=== PATIENT | female | born 1935 | race Caucasian/White ===

== ENCOUNTER 2019-04-18 09:35 | Outpatient (CLI) | payer MEDICARE, BC ==
--- NOTE | 2019-04-18 10:49 | CT ---
CT abdomen and pelvis with IV contrast. Oral contrast was administered. INDICATIONS: Colon cancer COMPARISON: None FINDINGS: Lung bases are clear Liver, spleen, and pancreas appear unremarkable. Stomach and duodenum appear unremarkable. Adrenal glands appear normal. 1.4 cm cyst superior pole right kidney. 1.2 cm cyst inferior pole right kidney. Other smaller subcent imeter cyst right kidney. 1 cm cyst mid left kidney. 1 cm cyst superior left kidney. Other smaller subcentimeter cystic lesions left kidney. No hydronephrosis or solid mass. Urinary bladder contracted and not well evaluated. Mural thickening of the terminal ileum. Small bowel loops otherwise unremarkable. Appendix not identified. Mural thickening at the cecum may related to patient's known history of colon cancer. Aorta shows atherosclerotic calcification without aneurysm. No evidence of retroperitoneal or mesenteric adenopathy. Calcification within the uterine fundus consistent with fibroid. Uterus and adnexa otherwise unremark able. Subcutaneous tissues, abdominal wall, and muscular structures appear unremarkable. Degenerative changes at both hips. No focal lytic or blastic osseous lesion. IMPRESSION: 1. Mural thickening and luminal narrowing at the cecum may relate to known history of colon cancer. M ural thickening of the terminal ileum is also noted. 2. Renal cystic lesions as described
[2019-04-18] MEDS ORDERED: ISOVUE-370 76%-LOCM 1 ML ONE (20:37)
== END 2019-04-18 09:36 | disposition home or self-care (01) ==
LOC: BICCT 09:35
PROVIDERS: ATTEND Surgery
DX: C18.2 Malignant neoplasm of ascending colon (principal); N28.1 Cyst of kidney, acquired; K56.609 Unspecified intestinal obstruction, unspecified as to partial versus complete obstruction
CPT/HCPCS: 74177; 82565; Q9966

== ENCOUNTER 2019-04-23 10:50 | Outpatient (CLI) | payer MEDICARE, BC ==
[2019-04-23 12:50] LABS: #Eosinphils 0.1 thou/uL (0.0-0.7); #Lymphocytes 1.9 thou/uL (1.20-3.40); #Monocytes 0.7 thou/uL (0.11-0.59); #Neutrophils 3.2 thou/uL (1.40-6.50); %Basophils 0.6 % (0.0-1.0); %Eosinophils 2.3 % (0.0-10.0); %Lymphocytes 32.3 % (21.0-51.0); %Monocytes 11.1 % (0.0-10.0); %Neutrophils 53.8 % (42.0-75.0); Hemoglobin 14.7 g/dL (12.0-16.0); Mean Corpuscular HGB CONC 33.6 g/dL (32.0-36.0); Mean Corpuscular Hemoglobin 31.6 pg (27.0-31.0); Mean Corpuscular Volume 94.1 fL (78.0-98.0); Platelet Count 181 thou/uL (130-400); RBC Distribution Width 11.6 % (11.5-14.5); Red Blood Cell (RBC) Count 4.63 mill/uL (4.20-5.40); White Blood Cell (WBC) Count 5.9 thou/uL (4.8-10.8)
[2019-04-23 12:59] LABS: Hemoglobin A1c 5.5 % (4.0-6.0)
[2019-04-23 13:12] LABS: Anion Gap 12 mmol/L (10-20); BUN (Urea Nitrogen) 20 mg/dL (9.8-20.1); Calc. Creatinine Clearance 0 mL/min (70-130); Calcium 9.6 mg/dL (7.8-10.44); Carbon Dioxide 26 mmol/L (23-31); Chloride 105 mmol/L (98-107); Estimated GFR-MDRD 66; Glucose 78 mg/dL (83-110); Potassium 4.3 mmol/L (3.5-5.1); Sodium 139 mmol/L (136-145)
== END 2019-04-23 10:51 | disposition home or self-care (01) ==
LOC: LABBT 10:50
PROVIDERS: ATTEND Surgery
DX: Z01.818 Encounter for other preprocedural examination (principal); C18.9 Malignant neoplasm of colon, unspecified
CPT/HCPCS: 80048; 83036; 85025; 93005; 93010

== ENCOUNTER 2019-05-02 07:31 | Inpatient (IN) | payer MEDICARE, BC ==
[2019-05-02] MEDS ORDERED: Esmolol 100 MG/10 ML VIAL ONE (11:59)
[2019-05-02] MEDS ORDERED: Sodium Chloride 0.9% 100 ML ONE (11:59)
[2019-05-02] MEDS ORDERED: cefOXitin 2 GM VIAL ONE ×2 (11:59→15:44)
[2019-05-02] MEDS ORDERED: Fentanyl 100 MCG/2 ML VIAL ONE ×2 (13:17→13:19)
[2019-05-02] MEDS ORDERED: Midazolam HCl 2 mg/2 ml Vial ONE (13:19)
[2019-05-02] MEDS ORDERED: Dexamethasone 4 mg/ml Vial ONE (13:30)
[2019-05-02] MEDS ORDERED: Lidocaine 1% (PF) 30 ML VIAL ONE (13:30)
[2019-05-02] MEDS ORDERED: Indocyanine Green 25 MG/10 ML VIAL ONE (13:32)
[2019-05-02] MEDS ORDERED: Bupivacaine/Epinephrine 0.25% 30 ML VIAL ONE (13:32)
[2019-05-02] MEDS ORDERED: Albumin 5% 0 ML ONE (13:44)
[2019-05-02] MEDS ORDERED: Ondansetron HCl/PF 4 MG/2 ML Vial IVP PRN (15:27)
[2019-05-02] MEDS ORDERED: Promethazine HCl 25 MG/ML VIAL SLOW IVP PRN (15:27)
[2019-05-02] MEDS ORDERED: HYDROmorphone 2 MG/ML VIAL SLOW IVP PRN (15:27)
[2019-05-02] MEDS ORDERED: Meperidine HCl/PF 25 MG/ML VIAL SLOW IVP PRN (15:27)
[2019-05-02] MEDS ORDERED: Ketorolac Tromethamine 30 MG/ML VIAL IVP PRN (15:27)
[2019-05-02] MEDS ORDERED: Promethazine HCl 25 MG/ML VIAL IM PRN ×2 (15:27→16:44)
[2019-05-02] MEDS ORDERED: Fentanyl 100 MCG/2 ML VIAL SLOW IVP PRN ×2 (16:44)
[2019-05-02] MEDS ORDERED: hydrALAZINE 20 MG/ML VIAL SLOW IVP PRN (16:44)
[2019-05-02 19:57] VITALS: BMI 21.4
[2019-05-02] MEDS: Acetaminophen 1,000 MG in Premix Bag 1 BAG IVPB SCH (20:18)
[2019-05-02] MEDS: D5 1/2 NS w/20 mEq KCL 1,000 ML IV SCH (20:19)
[2019-05-02] MEDS: Famotidine/PF 20 mg/2ml Vial SLOW IVP SCH (20:20)
[2019-05-02] MEDS: Ondansetron PF 4 MG/2 ML Vial IVP PRN (20:20)
[2019-05-02] MEDS: Famotidine 20 MG TAB PO SCH (20:20)
[2019-05-02] MEDS: cefOXitin Sodium/Dextrose,Iso 1 GM in Premix Bag 50 BAG IVPB SCH (23:08)
--- NOTE | 2019-05-03 00:03 | OP ---
DATE OF PROCEDURE: 05/02/2019 PREOPERATIVE DIAGNOSIS: Ascending colon cancer. POSTOPERATIVE DIAGNOSIS: Ascending colon cancer. PROCEDURE PERFORMED: Da Maxime laparoscopic right colectomy with isoperistaltic anastomosis. ANESTHESIA: General. ESTIMATED BLOOD LOSS: 50 mL. COMPLICATIONS: None. FINDINGS: The small polypoid cancer is in the cecum when the specimen was opened on the back table. DESCRIPTION OF PROCEDURE: The patient had undergone mechanical and antibiotic bowel prep. She had TAP blocks in the preoperative holding area, taken to the operating room and laid supine on the operating table. After general anesthetic was obtained, a Andrade was placed. The abdomen was prepped and draped in a sterile fashion. Left subcostal 5 mm Optiview trocar was placed in usual fashion. High-flow pneumoperitoneum was obtained. The robot camera port was placed in the left umbilicus. Robot assist ports placed in the left lower quadrant. The subcostal 5 port was switched out to the robot stapler port. 11 mm assist port was placed in the left lateral abdomen. The patient had been placed in Trendelenburg position, rolled to her left. Robot was brought on the right and all ports were docked to the robot. She had some adhesions from prior appendectomy. These were taken down. The ileocolic vessels were skeletonized. The ileocolic artery was skeletonized in the medial aspect of the ascending colon mesentery. The ileocolic artery was taken low using the robot vessel sealer. Dissection was performed then through the mesentery. The right ureter was found and excluded from the dissection. The right colon was mobilized along the white line of Toldt posteriorly in the area that the duodenum was left down and out of the area of dissection and not injured. Dissection was performed around the corner. The hepatic flexure was mobilized and then the colon was mobilized in the proximal transverse colon. A robot stapler was fired across the proximal transverse colon, reloaded and fired across the terminal ileum. The specimen was then completely . The small intestine was able to brought up in an isoperistaltic fashion next to the proximal transverse colon under no tension. Holding stitch of Vicryl was placed on the distal and proximal ends of the small intestine to attach it to the side of the transverse colon. Colotomy and enterotomy were made and the [id number]-rj-[id number] anastomosis performed using a reload of the stapler. The common enterotomy was closed longitudinally using a running 2-0 Vicryl suture in 2 layers. All needles were removed from the abdomen. There was no ongoing bleeding. All ports were undocked from the robot. The robot trocar was removed and a GraNee needle 0 Vicryl tie was used to close the fascial defect. A small incision was made in the right lower quadrant and Darek small wound retractor was placed. The colon specimen was brought out through the incision. It was opened on the back table to reveal the mass to be in the specimen. This fascial defect was closed with the anterior-posterior fascia using PDS suture. The incision was irrigated copiously using sterile solution. All incisions were irrigated and closed using 4-0 Monocryl and Dermabond. The patient was sent to Recovery in stable condition. All instrument counts, needle counts and lap counts are correct. Job ID: [id number]
[2019-05-03] MEDS: Acetaminophen 1,000 MG in Premix Bag 1 BAG IVPB SCH ×2 (02:45→08:55)
[2019-05-03 05:45] LABS: Band 5 % (5-11); Hemoglobin 12.7 g/dL (12.0-16.0); Lymphocytes 9 % (21-51); MDiff Complete? YES; Mean Corpuscular HGB CONC 34.8 g/dL (32.0-36.0); Mean Corpuscular Hemoglobin 32.7 pg (27.0-31.0); Mean Platelet Volume 7.3 fL (7.4-10.4); Neutrophil 85 % (42-75); Platelet Count 154 thou/uL (130-400); RBC Distribution Width 11.4 % (11.5-14.5); Reactive Lymphocytes 1 % (0-10); White Blood Cell (WBC) Count 9.6 thou/uL (4.8-10.8)
[2019-05-03 05:54] LABS: Anion Gap 13 mmol/L (10-20); BUN (Urea Nitrogen) 13 mg/dL (9.8-20.1); Calc. Creatinine Clearance 43 mL/min (70-130); Calcium 8.8 mg/dL (7.8-10.44); Carbon Dioxide 21 mmol/L (23-31); Chloride 106 mmol/L (98-107); Estimated GFR-MDRD 60; Glucose 179 mg/dL (83-110); Potassium 4.5 mmol/L (3.5-5.1); Sodium 135 mmol/L (136-145)
[2019-05-03] MEDS: Ondansetron PF 4 MG/2 ML Vial IVP PRN ×2 (06:47→12:33)
[2019-05-03] MEDS: Famotidine 20 MG TAB PO SCH ×2 (08:54→20:12)
[2019-05-03] MEDS ORDERED: Prevnar 13-Val Conj/PF 0.5 ML SYRINGE IM ONE (09:00)
[2019-05-03] MEDS ORDERED: FLU VACC TS2019-20(65YR UP)/PF 180 MCG/0.5 ML SYRINGE IM ONE (09:00)
--- NOTE | 2019-05-03 09:54 | PDOC.GSPN ---
Surgery Progress Note: Subj - Subjective Narrative: complaining of nausea when up out of bed Surgery Progress Note: Obj - Vital signs Vital signs: Vital Signs - Most Recent Temp Pulse Resp BP Pulse Ox 97.5 F L 69 16 126/78 97 05/03/19 07:15 05/03/19 07:15 05/03/19 07:15 05/03/19 07:15 05/03/19 07:15 - Physical Exam General: no distress Abdomen: soft, appropriately tender Wound: healing well Surgery Progress Note: Results - Labs Result Diagrams: 05/03/19 04:48 05/03/19 04:48 Lab results: Laboratory Results - last 24 hr 05/03/19 05/03/19 04:48 04:48 WBC 9.6 RBC 3.90 L Hgb 12.7 Hct 36.6 MCV 94.0 MCH 32.7 H MCHC 34.8 RDW 11.4 L Plt Count 154 MPV 7.3 L Neutrophils % (Manual) 85 H Band Neuts % (Manual) 5 Lymphocytes % (Manual) 9 L Reactive Lymphs % 1 Sodium 135 L Potassium 4.5 Chloride 106 Carbon Dioxide 21 L Anion Gap 13 BUN 13 Creatinine 0.90 Estimated GFR (MDRD) 60 Glucose 179 H Calcium 8.8 Surgery Progress Note: A/P - Problem (1) Colon cancer Current Visit: Yes Code(s): C18.9 - MALIGNANT NEOPLASM OF COLON, UNSPECIFIED Status: Acute - Plan Plan: POD 1 right colectomy -clears until nausea improves
[2019-05-03] MEDS ORDERED: D5 1/2 NS w/20 mEq KCL 1,000 ML IV SCH (09:55)
[2019-05-03] MEDS: Famotidine/PF 20 mg/2ml Vial SLOW IVP SCH ×2 (10:56→20:11)
[2019-05-03] MEDS: cefOXitin Sodium/Dextrose,Iso 1 GM in Premix Bag 50 BAG IVPB SCH (11:00)
[2019-05-03] MEDS: D5 1/2 NS w/20 mEq KCL 1,000 ML IV SCH (11:02)
[2019-05-03] MEDS: Acetaminophen 1,000 MG in Premix Bag 1 BAG IVPB PRN (15:31)
--- NOTE | 2019-05-04 07:57 | PDOC.GSPN ---
Surgery Progress Note: Subj - Subjective Narrative: Pt is POD 2 right colectomy for colon cancer. Has not had any more nausea since 6pm last night, and has been tolerating clear liquids very well since then. Was able to ambulate 3 laps around the floor yesterday with assistance, and has been able to reach the bathroom without assistance all night. Surgery Progress Note: Obj - Vital signs Vital signs: Vital Signs - Most Recent Temp Pulse Resp BP Pulse Ox 97.6 F 66 16 122/74 96 05/04/19 04:01 05/04/19 04:01 05/04/19 04:01 05/04/19 04:01 05/04/19 04:01 - Physical Exam General: no distress, no pain Cardiovascular: regular rate and rhythm Respiratory: clear to auscultation, normal expansion, normal respiratory effort , breath sounds present Abdomen: soft, positive bowel sounds, appropriately tender Wound: healing well (Some minor bruising around port sites and the r. lower incision site, but overall healing well) Surgery Progress Note: Results - Labs Result Diagrams: 05/03/19 04:48 05/03/19 04:48 Surgery Progress Note: A/P - Problem (1) Colon cancer Current Visit: Yes Code(s): C18.9 - MALIGNANT NEOPLASM OF COLON, UNSPECIFIED Status: Acute - Plan Plan: Pt is improving greatly with ability to tolerate clear liquids, and has not had any more nausea since yesterday evening. Discharge home this afternoon pending continued toleration of liquids with instructions to advance diet at home.
[2019-05-04] MEDS: Acetaminophen 1,000 MG in Premix Bag 1 BAG IVPB PRN (08:16)
[2019-05-04] MEDS: Famotidine 20 MG TAB PO SCH (08:16)
[2019-05-04] MEDS: Famotidine/PF 20 mg/2ml Vial SLOW IVP SCH (08:16)
[2019-05-04] MEDS ORDERED: HYDROcodone/Acetaminophen 7.5/325 mg Tablet PO PRN (10:28)
[2019-05-04 11:51] VITALS: BP 134/83; TEMP 98.1
[2019-05-04] MEDS ORDERED: Brimonidine Tartrate 0.2% Ophth Soln 5 ml Bottle EA EYE SCH (21:00)
[2019-05-04] MEDS ORDERED: Dorzolamide HCl 2% Ophth Soln 10 ml Bottle EA EYE SCH (21:00)
[2019-05-04] MEDS ORDERED: Latanoprost 0.005% Ophth Soln 2.5 ml Bottle EA EYE SCH (21:00)
--- NOTE | 2019-05-05 01:51 | DIS ---
DATE OF ADMISSION: 05/02/2019 DATE OF DISCHARGE: 05/04/2019 ADMIT DIAGNOSIS: Ascending colon cancer. DISCHARGE DIAGNOSIS: Ascending colon cancer. PROCEDURES: DA Maxime laparoscopic right colectomy by Dr. Mtz without complication. CONDITION ON DISCHARGE: Improved. HOSPITAL COURSE: Postop day #1, the patient had some nausea. On postop day #2, she is tolerating her liquid diet without difficulty. She has had a bowel movement. She is passing gas. On exam, her abdomen is soft and she has active bowel sounds. She is being discharged home. She will do soup type diet for 2 days, casserole diet for few days, and then diet as tolerated. Prescriptions for [place] and ondansetron sent to [facility]. My office will call her next week for pathology results. She will follow up with me in 2 weeks. Job ID: [id number]
== END 2019-05-04 14:44 | disposition home or self-care (01) | DRG 330 ==
LOC: SURG A 11:23
PROVIDERS: ADMIT Surgery; ATTEND Surgery
PROC: 0DTK4ZZ Resection of Ascending Colon, Percutaneous Endoscopic Approach (ICD-10-PCS; principal; 2019-05-02)
DX: C18.2 Malignant neoplasm of ascending colon (principal); C18.0 Malignant neoplasm of cecum; Z98.42 Cataract extraction status, left eye; Z98.41 Cataract extraction status, right eye
CPT/HCPCS: 36415; 36416; 80048; 85025; J0131; J0694; J1100; J2001; J2250; J2405; J2550; J3010; J3490; P9045; S0028

== ENCOUNTER 2022-03-30 06:59 | Inpatient (IN) | payer MEDICARE, BC ==
[2022-03-30] MEDS ORDERED: Aspirin 325 MG TAB ONE (07:26)
[2022-03-30] MEDS ORDERED: Nitroglycerin 0.4 MG TAB 1 EACH ONE ×2 (07:26→09:22)
[2022-03-30 07:50] LABS: #Eosinphils 0.1 thou/uL (0.0-0.7); #Monocytes 0.5 thou/uL (0.11-0.59); #Neutrophils 2.8 thou/uL (1.40-6.50); %Basophils 0.2 % (0.0-1.0); %Monocytes 11.5 % (0.0-10.0); %Neutrophils 63.4 % (42.0-75.0); Hemoglobin 14.4 g/dL (12.0-16.0); Mean Corpuscular HGB CONC 33.6 g/dL (32.0-36.0); Mean Corpuscular Hemoglobin 32.4 pg (27.0-31.0); Mean Corpuscular Volume 96.6 fL (78.0-98.0); Mean Platelet Volume 7.3 fL (7.4-10.4); Platelet Count 153 thou/uL (130-400); RBC Distribution Width 11.6 % (11.5-14.5); Red Blood Cell (RBC) Count 4.43 mill/uL (4.20-5.40); White Blood Cell (WBC) Count 4.4 thou/uL (4.8-10.8)
[2022-03-30 08:05] LABS: ALT (SGPT) 18 U/L (8-55); AST (SGOT) 23 U/L (5-34); Albumin 3.9 g/dL (3.4-4.8); Alkaline Phosphatase 59 U/L (40-110); Anion Gap 15 mmol/L (10-20); BUN (Urea Nitrogen) 18 mg/dL (9.8-20.1); Bilirubin, Total 0.9 mg/dL (0.2-1.2); Calc. Creatinine Clearance 0 mL/min (70-130); Calcium 9.6 mg/dL (7.8-10.44); Carbon Dioxide 23 mmol/L (23-31); Chloride 108 mmol/L (98-107); Estimated GFR 61; Globulin 3.1 g/dL (2.4-3.5); Glucose 108 mg/dL (83-110); Sodium 142 mmol/L (136-145)
[2022-03-30 08:27] LABS: CKMB 5.4 ng/mL (0-6.6)
[2022-03-30] MEDS ORDERED: Iopamidol 370 76% 100 ML VIAL ONE (08:52)
[2022-03-30] MEDS ORDERED: Nitroglycerin 50 MG/250 ML BOT 250 ML ONE ×2 (09:48→14:57)
[2022-03-30] MEDS ORDERED: Nitroglycerin 0.4 MG TAB (25 Tab Bottle) SL PRN (10:24)
[2022-03-30] MEDS ORDERED: Senokot S 8.6-50 MG TAB PO PRN (10:29)
[2022-03-30] MEDS ORDERED: Ondansetron ODT 4 MG TAB PO PRN (10:29)
[2022-03-30 10:47] LABS: Cardiac Risk 4.1 (Less than 4.5); Cholesterol 199 mg/dl (< 200 Desired); HDL Cholesterol 48 mg/dL (>60 Neg Risk); LDL Cholesterol, Calculated 124 mg/dL; Magnesium 2.1 mg/dL (1.6-2.6); Triglycerides 137 mg/dL (Less than 150)
[2022-03-30] MEDS ORDERED: Communication Order-Pharmacy FS SCH (12:15)
[2022-03-30] MEDS ORDERED: Lidocaine 1% 50ML VIAL ONE (13:12)
[2022-03-30] MEDS ORDERED: Midazolam HCl 2 mg/2 ml Vial ONE (13:50)
[2022-03-30] MEDS ORDERED: Fentanyl 100 MCG/2 ML VIAL ONE (13:51)
[2022-03-30] MEDS ORDERED: Nitroglycerin 2% Ointment 1 INCH/1 GM Packet ONE (14:06)
[2022-03-30] MEDS ORDERED: Nitroglycerin 4.9 GM Bottle ONE (14:19)
[2022-03-30] MEDS ORDERED: hydrALAZINE 20 MG/ML VIAL ONE (14:22)
[2022-03-30] MEDS ORDERED: Heparin 25,000 units/D5W 500 ML ONE (14:54)
[2022-03-30] MEDS ORDERED: Heparin 10,000 UNITS/ 10 ML VIAL ONE (15:15)
[2022-03-30 15:56] VITALS: BMI 24.3
[2022-03-30] MEDS ORDERED: Clopidogrel Bisulfate 300 MG TAB PO SCH (16:15)
[2022-03-30 16:35] LABS: INR-International Normal Ratio 1.1; PTT 32.4 sec (22.9-36.1); Prothrombin Time 14.6 sec (12.0-14.7)
[2022-03-30 16:44] LABS: SARS-CoV-2 NAA Rapid Test Not Detected (NotDetected)
[2022-03-30] MEDS: Sodium Chloride 0.9% 1,000 ML IV SCH (17:24)
[2022-03-30] MEDS ORDERED: Nitroglycerin 50 MG/250 ML BOT 250 ML IVPB SCH (17:45)
[2022-03-30] MEDS: Ondansetron PF 4 MG/2 ML Vial IVP PRN (17:45)
[2022-03-30] MEDS ORDERED: Atorvastatin Calcium 40 MG TAB PO SCH (17:45)
[2022-03-30] MEDS: Acetaminophen 325 MG TAB PO PRN (17:45)
[2022-03-30] MEDS ORDERED: Heparin 25,000 units/D5W 500 ML IV SCH (17:45)
[2022-03-30] MEDS ORDERED: Morphine 2 MG/ML VIAL SLOW IVP PRN ×2 (18:28→18:45)
[2022-03-30] MEDS: Atorvastatin Calcium 40 MG TAB PO SCH (20:51)
[2022-03-30] MEDS: Dorzolamide HCl 2% Ophth Soln 10 ml Bottle EA EYE SCH (20:57)
[2022-03-30] MEDS: Brimonidine Tartrate 0.2% Ophth Soln 5 ml Bottle EA EYE SCH (20:57)
[2022-03-30] MEDS: Latanoprost 0.005% Ophth Soln 2.5 ml Bottle EA EYE SCH (20:58)
[2022-03-30] MEDS: Metoprolol Tartrate 25 MG TAB PO SCH ×2 (21:41→22:40)
[2022-03-31] MEDS: Acetaminophen 325 MG TAB PO PRN (03:23)
[2022-03-31] MEDS: Sodium Chloride 0.9% 1,000 ML IV SCH (03:26)
[2022-03-31 04:27] LABS: #Lymphocytes 1.5 thou/uL (1.20-3.40); #Monocytes 0.8 thou/uL (0.11-0.59); #Neutrophils 5.7 thou/uL (1.40-6.50); %Basophils 0.1 % (0.0-1.0); %Eosinophils 0.6 % (0.0-10.0); %Lymphocytes 18.4 % (21.0-51.0); %Monocytes 10.2 % (0.0-10.0); %Neutrophils 70.7 % (42.0-75.0); Hemoglobin 12.7 g/dL (12.0-16.0); Mean Corpuscular Hemoglobin 32.6 pg (27.0-31.0); Mean Corpuscular Volume 96.1 fL (78.0-98.0); Mean Platelet Volume 7.2 fL (7.4-10.4); Platelet Count 141 thou/uL (130-400); RBC Distribution Width 11.5 % (11.5-14.5); Red Blood Cell (RBC) Count 3.88 mill/uL (4.20-5.40); White Blood Cell (WBC) Count 8.1 thou/uL (4.8-10.8)
[2022-03-31 04:45] LABS: Anion Gap 12 mmol/L (10-20); BUN (Urea Nitrogen) 18 mg/dL (9.8-20.1); Calc. Creatinine Clearance 53 mL/min (70-130); Calcium 8.5 mg/dL (7.8-10.44); Carbon Dioxide 21 mmol/L (23-31); Chloride 107 mmol/L (98-107); Estimated GFR 80; Glucose 127 mg/dL (83-110); Potassium 3.6 mmol/L (3.5-5.1); Sodium 136 mmol/L (136-145)
[2022-03-31] MEDS ORDERED: Potassium Bicarbonate/Cit Ac 20 MEQ TAB PO SCH (07:00)
[2022-03-31] MEDS: Ondansetron PF 4 MG/2 ML Vial IVP PRN (07:50)
[2022-03-31 07:58] LABS: Troponin I 14.729 ng/mL (< 0.028)
[2022-03-31] MEDS: Clopidogrel Bisulfate 75 MG TAB PO SCH (08:18)
[2022-03-31] MEDS: Famotidine 20 MG TAB PO SCH ×2 (08:18→20:26)
[2022-03-31] MEDS: Aspirin Chewable 81 MG TAB PO SCH (08:18)
[2022-03-31] MEDS: Metoprolol Tartrate 25 MG TAB PO SCH ×2 (08:21→20:24)
[2022-03-31] MEDS: Dorzolamide HCl 2% Ophth Soln 10 ml Bottle EA EYE SCH ×2 (11:48→20:32)
[2022-03-31] MEDS: Brimonidine Tartrate 0.2% Ophth Soln 5 ml Bottle EA EYE SCH ×2 (11:51→20:32)
[2022-03-31] MEDS: Atorvastatin Calcium 40 MG TAB PO SCH (20:25)
[2022-03-31] MEDS: Latanoprost 0.005% Ophth Soln 2.5 ml Bottle EA EYE SCH (20:30)
[2022-04-01 04:02] LABS: #Lymphocytes 1.4 thou/uL (1.20-3.40); #Neutrophils 4.7 thou/uL (1.40-6.50); %Basophils 0.2 % (0.0-1.0); %Eosinophils 0.6 % (0.0-10.0); %Lymphocytes 19.1 % (21.0-51.0); %Monocytes 14.1 % (0.0-10.0); Hemoglobin 12.7 g/dL (12.0-16.0); Mean Corpuscular HGB CONC 35.1 g/dL (32.0-36.0); Mean Corpuscular Hemoglobin 34.5 pg (27.0-31.0); Mean Corpuscular Volume 98.3 fL (78.0-98.0); Mean Platelet Volume 7.4 fL (7.4-10.4); Platelet Count 134 thou/uL (130-400); RBC Distribution Width 11.7 % (11.5-14.5); Red Blood Cell (RBC) Count 3.67 mill/uL (4.20-5.40); White Blood Cell (WBC) Count 7.2 thou/uL (4.8-10.8)
[2022-04-01 04:10] LABS: Anion Gap 13 mmol/L (10-20); BUN (Urea Nitrogen) 16 mg/dL (9.8-20.1); Calc. Creatinine Clearance 45 mL/min (70-130); Calcium 8.7 mg/dL (7.8-10.44); Carbon Dioxide 22 mmol/L (23-31); Chloride 106 mmol/L (98-107); Estimated GFR 65; Glucose 117 mg/dL (83-110); Potassium 4.1 mmol/L (3.5-5.1); Sodium 137 mmol/L (136-145)
[2022-04-01 04:20] LABS: Critical Call Chem Troponin I RESULT DECREASING; Troponin I 7.057 ng/mL (< 0.028)
[2022-04-01] MEDS: Metoprolol Tartrate 25 MG TAB PO SCH ×2 (09:48→21:07)
[2022-04-01] MEDS: Lisinopril 2.5 MG TAB PO SCH (09:48)
[2022-04-01] MEDS: Clopidogrel Bisulfate 75 MG TAB PO SCH (09:48)
[2022-04-01] MEDS: Aspirin Chewable 81 MG TAB PO SCH (09:48)
[2022-04-01] MEDS: Famotidine 20 MG TAB PO SCH ×2 (09:49→21:07)
[2022-04-01] MEDS: Brimonidine Tartrate 0.2% Ophth Soln 5 ml Bottle EA EYE SCH ×2 (09:57→21:05)
[2022-04-01] MEDS: Dorzolamide HCl 2% Ophth Soln 10 ml Bottle EA EYE SCH ×2 (09:58→21:06)
[2022-04-01] MEDS: Latanoprost 0.005% Ophth Soln 2.5 ml Bottle EA EYE SCH (21:06)
[2022-04-01] MEDS: Atorvastatin Calcium 40 MG TAB PO SCH (21:07)
[2022-04-01 22:33] LABS: Bacteria/HPF 4+ HPF (None Seen); Bilirubin Negative (Negative); Blood, Urine 1+ (Negative); Clarity Turbid (Clear); Glucose, Urine (Dipstick) Normal (Negative); Ketone, Urine Negative (Negative); Leukocyte 500 Leu/uL (Negative); Nitrite 1+ (Negative); Protein, Urine (Dipstick) Negative (Neg-Trace); Specific Gravity, Urine 1.007 (1.002-1.036); Squamous Epithelial 0-3 HPF (0-3); Urobilinogen Normal mg/dL (Less than 2); WBC/HPF Greater than 50 HPF (0-3); pH, Urine 5.5 (5.0-9.0)
[2022-04-01 22:36] LABS: Urine Culture Reflex Yes Yes
[2022-04-02] MEDS ORDERED: Ciprofloxacin 500 MG TAB PO SCH (07:00)
[2022-04-02] MEDS: Lisinopril 2.5 MG TAB PO SCH (08:38)
[2022-04-02] MEDS: Aspirin Chewable 81 MG TAB PO SCH (08:38)
[2022-04-02] MEDS: Clopidogrel Bisulfate 75 MG TAB PO SCH (08:38)
[2022-04-02] MEDS: Enoxaparin Sodium 30 MG/0.3 ML SYRINGE SC SCH (08:39)
[2022-04-02] MEDS: Brimonidine Tartrate 0.2% Ophth Soln 5 ml Bottle EA EYE SCH ×2 (08:39→20:11)
[2022-04-02] MEDS: Dorzolamide HCl 2% Ophth Soln 10 ml Bottle EA EYE SCH ×2 (08:40→20:10)
[2022-04-02] MEDS ORDERED: Sodium Chloride 0.9% 500 ML IVPB SCH (12:45)
[2022-04-02] MEDS: Atorvastatin Calcium 40 MG TAB PO SCH (20:09)
[2022-04-02] MEDS: Ciprofloxacin 500 MG TAB PO SCH (20:09)
[2022-04-02] MEDS: Famotidine 20 MG TAB PO SCH (20:10)
[2022-04-02] MEDS: Latanoprost 0.005% Ophth Soln 2.5 ml Bottle EA EYE SCH (20:10)
[2022-04-02] MEDS ORDERED: Lisinopril 2.5 MG TAB PO SCH (21:00)
[2022-04-03] MEDS: Ciprofloxacin 500 MG TAB PO SCH ×2 (05:26→20:50)
[2022-04-03] MEDS: Clopidogrel Bisulfate 75 MG TAB PO SCH (09:37)
[2022-04-03] MEDS: Enoxaparin Sodium 30 MG/0.3 ML SYRINGE SC SCH (09:37)
[2022-04-03] MEDS: Aspirin Chewable 81 MG TAB PO SCH (09:37)
[2022-04-03] MEDS: Brimonidine Tartrate 0.2% Ophth Soln 5 ml Bottle EA EYE SCH ×2 (09:45→20:50)
[2022-04-03] MEDS: Dorzolamide HCl 2% Ophth Soln 10 ml Bottle EA EYE SCH ×2 (09:47→20:51)
[2022-04-03] MEDS ORDERED: Sodium Chloride 0.9% 250 ML IV SCH (13:45)
[2022-04-03] MEDS: Atorvastatin Calcium 40 MG TAB PO SCH (20:50)
[2022-04-03] MEDS: Famotidine 20 MG TAB PO SCH (20:50)
[2022-04-03] MEDS: Latanoprost 0.005% Ophth Soln 2.5 ml Bottle EA EYE SCH (20:51)
[2022-04-04] MEDS: Ciprofloxacin 500 MG TAB PO SCH (06:24)
[2022-04-04] MEDS: Aspirin Chewable 81 MG TAB PO SCH (09:52)
[2022-04-04] MEDS: Enoxaparin Sodium 30 MG/0.3 ML SYRINGE SC SCH (09:52)
[2022-04-04] MEDS: Clopidogrel Bisulfate 75 MG TAB PO SCH (09:52)
[2022-04-04] MEDS: Brimonidine Tartrate 0.2% Ophth Soln 5 ml Bottle EA EYE SCH (09:53)
[2022-04-04] MEDS: Dorzolamide HCl 2% Ophth Soln 10 ml Bottle EA EYE SCH (09:53)
[2022-04-04 12:18] VITALS: TEMP 97.9
[2022-04-04 16:17] VITALS: BP 154/73
== END 2022-04-04 16:16 | disposition home or self-care (01) | DRG 282 ==
LOC: SUATTDRO 06:59 → ERS 06:59 → CCL 13:48 → 2SW 14:42 → OBSVTOIN 14:51 → CCU 15:01 → 2NO 04-01 20:48
PROVIDERS: ADMIT Internal Medicine; ATTEND Internal Medicine
PROC: 4A023N7 Measurement of Cardiac Sampling and Pressure, Left Heart, Percutaneous Approach (ICD-10-PCS; principal; 2022-03-30)
PROC: B2111ZZ Fluoroscopy of Multiple Coronary Arteries using Low Osmolar Contrast (ICD-10-PCS; 2022-03-30)
PROC: B2151ZZ Fluoroscopy of Left Heart using Low Osmolar Contrast (ICD-10-PCS; 2022-03-30)
DX: I21.4 Non-ST elevation (NSTEMI) myocardial infarction (principal); Z20.822 Contact with and (suspected) exposure to COVID-19; I25.110 Atherosclerotic heart disease of native coronary artery with unstable angina pectoris; H40.9 Unspecified glaucoma; M19.90 Unspecified osteoarthritis, unspecified site; E78.5 Hyperlipidemia, unspecified; I44.7 Left bundle-branch block, unspecified; I10 Essential (primary) hypertension; Z85.038 Personal history of other malignant neoplasm of large intestine; Z90.49 Acquired absence of other specified parts of digestive tract; Z98.890 Other specified postprocedural states; Z80.3 Family history of malignant neoplasm of breast; Z80.1 Family history of malignant neoplasm of trachea, bronchus and lung; Z79.82 Long term (current) use of aspirin; Z79.01 Long term (current) use of anticoagulants; Z79.899 Other long term (current) drug therapy
CPT/HCPCS: 36415; 36416; 71045; 80048; 80053; 80061; 81001; 82553; 83735; 83880; 84484; 85025; 85347; 85610; 85730; 87077; 87086; 87186; 93005; 93010; 93306; 93458; 94760; 99152; 99153; C1769; J0360; J1644; J1650; J2250; J2270; J2405; J3010; J3490; J7030; J7050; Q9967

== ENCOUNTER 2022-09-22 08:18 | Outpatient (CLI) | payer MEDICARE, BC | END 2022-09-22 08:19 | disposition home or self-care (01) | LOC: BICRAD 08:18 | PROVIDERS: ATTEND Family Medicine | DX: R06.02 Shortness of breath (principal) | CPT/HCPCS: 71046 ==

== ENCOUNTER 2022-12-31 10:02 | Outpatient (CLI) | payer MEDICARE, BC | END 2022-12-31 10:03 | disposition home or self-care (01) | LOC: RAD 10:02 | PROVIDERS: ATTEND Internal Medicine Critical Care Medicine | DX: R06.00 Dyspnea, unspecified (principal) | CPT/HCPCS: 71046 ==

== ENCOUNTER 2024-01-13 10:19 | Outpatient (CLI) | payer MEDICARE | END 2024-01-13 10:20 | disposition home or self-care (01) | LOC: BICMAMMO 10:19 | PROVIDERS: ATTEND Family Medicine | DX: Z12.31 Encounter for screening mammogram for malignant neoplasm of breast (principal); Z80.3 Family history of malignant neoplasm of breast | CPT/HCPCS: 77063; 77067 ==